=== PATIENT | female | born 1985 | race Caucasian/White ===

== ENCOUNTER 2018-04-01 17:19 | Inpatient (IN) | payer BC, OTHER ==
[~2018-04-01] VITALS: Ht 170.2 cm; Wt 72.6 kg
[~2018-04-01 17:19] MED LIST: ACETYLCYS IVPB ONE; D5W IVPB ONE; NAPR-723 PO
--- NOTE | 2018-04-01 18:04 | EKG ---
FACILITY: [facility] [place] PATIENT NAME: SAM SHEETS : [id number] MR: [id number] V: [id number] EXAM DATE: ORDERING PHYSICIAN: DIMITRIOS ROSENBERG TECHNOLOGIST: MALIK Test Reason : ER Blood Pressure : / mmHG Vent. Rate : 115 BPM Atrial Rate : 115 BPM P-R Int : 174 ms QRS Dur : 076 ms QT Int : 340 ms P-R-T Axes : 065 050 038 degrees QTc Int : 470 ms Sinus tachycardia Otherwise normal ECG No previous ECGs available Confirmed by Suresh Strauss ([id number]) on 04/01/2018 8:09:40 PM Referred By: Confirmed By:Suresh Lou
--- NOTE | 2018-04-01 18:05 | ER Report ---
History and Physical Time Seen By MD: 18:05 ([facility]) Time Seen By MD: 17:58 (TONI MACIEL MD) HPI/ROS CHIEF COMPLAINT: alcohol and Isopropyl alcohol ingestion HISTORY OF PRESENT ILLNESS: This is a 33 year old female. She is here because she has ingested some Isopropyl alcohol today. She had been on a heavy alcohol binge over the last couple of weeks. She works on a local [place] and the folks with here have been trying to remove alcohol from the home and anywhere she can access. She seemed to be okay this morning, but later in the afternoon, smelled like alcohol, and was found to have drank the isopropyl alcohol. Uncertain amount. They also found a bottle of wine that was almost empty. When I ask here why she drank the isopropyl alcohol, she is very evasive, and is also intoxicated. She says that she was sad, and also says that she wanted something different. She did admit that she knows that drinking this can be dangerous to her health. She denies being suicidal at this time, and denies depression. She denies any other self harm behavior and says that she has not taken any other medications, prescription or [id number]. She says that she wants to leave and I let her know that she would need to stay in the hospital. She denies any pain at this time. She will not communicate with me much otherwise. REVIEW OF SYSTEMS: Unable to obtain otherwise. (TONI MACIEL MD) Allergies: Uncoded Allergies: HYDROCODONE/APAP (Allergy, Mild, 06/20/08) Home Meds Reported Medications Naproxen (Naproxen) 500 Mg Tablet, 500 MG PO, 0 Refills 06/20/08 Reviewed Nurses Notes: Yes (TONI MACIEL MD) Constitutional Vital Sign - Last 24 Hours 04/01/18 04/01/18 04/01/18 04/01/18 17:19 17:25 17:32 17:49 Temp 98.3 Pulse ??? 130 119 Resp 19 9 B/P (MAP) 127/89 (102) 127/89 Pulse Ox 93 95 O2 Delivery Room Air 04/01/18 04/01/18 04/01/18 04/01/18 18:19 18:30 18:49 18:54 Pulse 114 110 112 Resp 17 11 15 B/P (MAP) 120/80 (93) 110/75 (87) Pulse Ox 94 95 94 04/01/18 04/01/18 04/01/18 04/01/18 19:09 19:24 19:32 19:37 Pulse 113 115 128 Resp 13 13 22 B/P (MAP) 118/77 (91) Pulse Ox 95 97 95 04/01/18 04/01/18 04/01/18 04/01/18 19:46 19:52 20:00 20:07 Pulse 111 117 Resp 11 16 B/P (MAP) 106/70 (82) 118/84 (95) Pulse Ox 93 96 04/01/18 04/01/18 04/01/18 04/01/18 20:22 20:30 20:37 20:52 Pulse 100 106 Resp 22 13 21 B/P (MAP) 109/79 (89) Pulse Ox 96 88 95 04/01/18 04/01/18 04/01/18 04/01/18 21:00 21:07 21:12 21:27 Pulse 110 110 Resp 10 25 24 B/P (MAP) 103/72 (82) Pulse Ox 82 98 04/01/18 21:30 B/P (MAP) 91/53 (66) Intake and Output 04/01/18 04/01/18 04/02/18 15:00 23:00 07:00 Intake Total 1000 ml Balance 1000 ml (RAHEEMTONI OMALLEY MD) Physical Exam General Appearance: The patient is alert, but slurring her words and has a difficult time focusing on questions, as well as being evasive and not wanting to take medications. No acute distress. Eyes: Pupils are equal, round. Reactive to light. No pallor, injection or icterus. Extraocular movements are intact. ENT: Mucous membranes are dry with some black material on teeth and tongue. Posterior oropharynx is normal. Normal tympanic membranes and canals. Neck: Supple and non tender. No lymphadenopathy. Respiratory: Lungs are clear to auscultation. There are no retractions or accessory muscle use. Cardiovascular: Regular rate and rhythm. No murmurs, gallops or rubs. Normal capillary refill. No edema. Gastrointestinal: Abdomen is soft and non tender. Nondistended. Normal active bowel sounds. No costovertebral angle tenderness with percussion. Neurological: Alert and oriented x2, can state her name, where she is, the day and date, but unable to say the names of people in the room or the president's name. Cranial nerves II through XII show no acute deficits on my exam other than the slurred speech. No focal neurologic deficits in the extremities other than cerebellar balance/coordination. Skin: Warm and dry. No rashes. Musculoskeletal: Extremities are nontender. No tenderness in palpation of the cervical, thoracic and lumbar spine. DIFFERENTIAL DIAGNOSIS: After history and physical exam, differential diagnosis was considered for altered mental status, ingestion of isopropyl alcohol, but no other reports of self-harm, evasive in the reasoning for drinking alcohol. ([facility],TONI Garcia MD) Medical Decision Making Data Points Result Diagram: 04/01/18 1732 04/01/18 1732 Laboratory Hematology Test 04/01/18 17:32 04/01/18 17:41 04/01/18 18:56 04/01/18 21:35 Red Blood Count 4.76 M/uL (4.17-5.56) Mean Corpuscular Volume 96.2 fL (80.0-96.0) Mean Corpuscular Hemoglobin 34.1 pg (26.0-33.0) Mean Corpuscular Hemoglobin Concent 35.4 g/dL (32.0-36.0) Red Cell Distribution Width 13.9 % (11.5-14.5) Mean Platelet Volume 8.5 fL (7.2-11.1) Neutrophils (%) (Auto) 63.1 % (39.4-72.5) Lymphocytes (%) (Auto) 30.8 % (17.6-49.6) Monocytes (%) (Auto) 5.7 % (4.1-12.4) Eosinophils (%) (Auto) 0.0 % (0.4-6.7) Basophils (%) (Auto) 0.4 % (0.3-1.4) Nucleated RBC Relative Count (auto) 0.1 /100WBC Neutrophils # (Auto) 8.2 K/uL (2.0-7.4) Lymphocytes # (Auto) 4.0 K/uL (1.3-3.6) Monocytes # (Auto) 0.7 K/uL (0.3-1.0) Eosinophils # (Auto) 0.0 K/uL (0.0-0.5) Basophils # (Auto) 0.1 K/uL (0.0-0.1) Nucleated RBC Absolute Count (auto) 0.02 K/uL Sodium Level 144 mmol/L (137-145) Potassium Level 3.6 mmol/L (3.5-5.0) Chloride Level 108 mmol/L (98-107) Carbon Dioxide Level 20 mmol/L (22-31) Blood Urea Nitrogen 11 mg/dl (7-18) Creatinine 0.70 mg/dl (0.52-1.04) Glomerular Filtration Rate Calc > 60.0 Random Glucose 101 mg/dl (75-110) Calcium Level 9.4 mg/dl (8.4-10.2) Magnesium Level 2.0 mg/dl (1.7-2.2) Total Bilirubin 0.2 mg/dl (0.2-1.3) Aspartate Amino Transf (AST/SGOT) 41 U/L (0-35) Alanine Aminotransferase (ALT/SGPT) 27 U/L (0-56) Alkaline Phosphatase 56 U/L (0-126) Total Protein 7.3 g/dl (6.3-8.2) Albumin 4.3 g/dl (3.5-5.0) Salicylates Level < 10 mg/L Salicylate Last Dose Date unknown Serum Alcohol 72 mg/dl Urine Color Colorless Urine Clarity Clear Urine pH 6.0 pH (4.8-9.5) Urine Specific [address] 1.003 Urine Protein Negative mg/dL (NEGATIVE) Urine Glucose (UA) Negative mg/dL (NEGATIVE) Urine Ketones Trace mg/dL (NEGATIVE) Urine Blood Negative (NEGATIVE) Urine Nitrite Negative (NEGATIVE) Urine Bilirubin Negative (NEGATIVE) Urine Urobilinogen Negative mg/dL (0.2-1.9) Urine Leukocyte Esterase Negative (NEGATIVE) Urine RBC <1 /HPF (0-2/HPF) Urine WBC <1 /HPF (0-5/HPF) Urine Squamous Epithelial Cells Many /LPF (</=FEW) Urine Bacteria Negative /HPF (NONE-FEW) Urine Mucus None /HPF (NONE-FEW) Urine HCG, Qualitative Negative (NEGATIVE) Urine Opiates Screen Negative Urine Barbiturates Screen Negative Ur Tricyclic Antidepressants Screen Negative Urine Phencyclidine Screen Negative Urine Amphetamines Screen Negative Urine Benzodiazepines Screen Negative Urine Cocaine Screen Negative Urine Cannabinoids Screen Negative Blood Gas Puncture Site Left radial Blood Gas Patient Temperature 98.4 DEGREES Arterial Blood pH 7.38 (7.35-7.45) Arterial Blood Partial Pressure CO2 31 mmHg (32-37) Arterial Blood Partial Pressure O2 55 mmHg (60-80) Arterial Blood HCO3 18 mmol/L (20-26) Arterial Blood Oxygen Saturation 89 % (92-100) Arterial Blood Base Excess -7.0 mmol/L Marco Test Acceptable Oxygen Liters/Minute Room air Chemistry Test 04/01/18 17:32 04/01/18 17:41 04/01/18 18:56 04/01/18 21:35 White Blood Count 13.0 k/uL (4.5-11.0) Red Blood Count 4.76 M/uL (4.17-5.56) Hemoglobin 16.2 g/dL (12.0-16.0) Hematocrit 45.8 % (34.0-47.0) Mean Corpuscular Volume 96.2 fL (80.0-96.0) Mean Corpuscular Hemoglobin 34.1 pg (26.0-33.0) Mean Corpuscular Hemoglobin Concent 35.4 g/dL (32.0-36.0) Red Cell Distribution Width 13.9 % (11.5-14.5) Platelet Count 247 K/uL (150-450) Mean Platelet Volume 8.5 fL (7.2-11.1) Neutrophils (%) (Auto) 63.1 % (39.4-72.5) Lymphocytes (%) (Auto) 30.8 % (17.6-49.6) Monocytes (%) (Auto) 5.7 % (4.1-12.4) Eosinophils (%) (Auto) 0.0 % (0.4-6.7) Basophils (%) (Auto) 0.4 % (0.3-1.4) Nucleated RBC Relative Count (auto) 0.1 /100WBC Neutrophils # (Auto) 8.2 K/uL (2.0-7.4) Lymphocytes # (Auto) 4.0 K/uL (1.3-3.6) Monocytes # (Auto) 0.7 K/uL (0.3-1.0) Eosinophils # (Auto) 0.0 K/uL (0.0-0.5) Basophils # (Auto) 0.1 K/uL (0.0-0.1) Nucleated RBC Absolute Count (auto) 0.02 K/uL Glomerular Filtration Rate Calc > 60.0 Calcium Level 9.4 mg/dl (8.4-10.2) Magnesium Level 2.0 mg/dl (1.7-2.2) Total Bilirubin 0.2 mg/dl (0.2-1.3) Aspartate Amino Transf (AST/SGOT) 41 U/L (0-35) Alanine Aminotransferase (ALT/SGPT) 27 U/L (0-56) Alkaline Phosphatase 56 U/L (0-126) Total Protein 7.3 g/dl (6.3-8.2) Albumin 4.3 g/dl (3.5-5.0) Salicylates Level < 10 mg/L Salicylate Last Dose Date unknown Serum Alcohol 72 mg/dl Urine Color Colorless Urine Clarity Clear Urine pH 6.0 pH (4.8-9.5) Urine Specific [address] 1.003 Urine Protein Negative mg/dL (NEGATIVE) Urine Glucose (UA) Negative mg/dL (NEGATIVE) Urine Ketones Trace mg/dL (NEGATIVE) Urine Blood Negative (NEGATIVE) Urine Nitrite Negative (NEGATIVE) Urine Bilirubin Negative (NEGATIVE) Urine Urobilinogen Negative mg/dL (0.2-1.9) Urine Leukocyte Esterase Negative (NEGATIVE) Urine RBC <1 /HPF (0-2/HPF) Urine WBC <1 /HPF (0-5/HPF) Urine Squamous Epithelial Cells Many /LPF (</=FEW) Urine Bacteria Negative /HPF (NONE-FEW) Urine Mucus None /HPF (NONE-FEW) Urine HCG, Qualitative Negative (NEGATIVE) Urine Opiates Screen Negative Urine Barbiturates Screen Negative Ur Tricyclic Antidepressants Screen Negative Urine Phencyclidine Screen Negative Urine Amphetamines Screen Negative Urine Benzodiazepines Screen Negative Urine Cocaine Screen Negative Urine Cannabinoids Screen Negative Blood Gas Puncture Site Left radial Blood Gas Patient Temperature 98.4 DEGREES Arterial Blood pH 7.38 (7.35-7.45) Arterial Blood Partial Pressure CO2 31 mmHg (32-37) Arterial Blood Partial Pressure O2 55 mmHg (60-80) Arterial Blood HCO3 18 mmol/L (20-26) Arterial Blood Oxygen Saturation 89 % (92-100) Arterial Blood Base Excess -7.0 mmol/L Marco Test Acceptable Oxygen Liters/Minute Room air Toxicology Test 04/01/18 17:32 04/01/18 17:41 04/01/18 21:35 Salicylates Level < 10 mg/L Salicylate Last Dose Date unknown Serum Alcohol 72 mg/dl Urine Opiates Screen Negative Urine Barbiturates Screen Negative Ur Tricyclic Antidepressants Screen Negative Urine Phencyclidine Screen Negative Urine Amphetamines Screen Negative Urine Benzodiazepines Screen Negative Urine Cocaine Screen Negative Urine Cannabinoids Screen Negative Urinalysis Test 04/01/18 17:41 Urine Color Colorless Urine Clarity Clear Urine pH 6.0 pH (4.8-9.5) Urine Specific [address] 1.003 Urine Protein Negative mg/dL (NEGATIVE) Urine Glucose (UA) Negative mg/dL (NEGATIVE) Urine Ketones Trace mg/dL (NEGATIVE) Urine Blood Negative (NEGATIVE) Urine Nitrite Negative (NEGATIVE) Urine Bilirubin Negative (NEGATIVE) Urine Urobilinogen Negative mg/dL (0.2-1.9) Urine Leukocyte Esterase Negative (NEGATIVE) Urine RBC <1 /HPF (0-2/HPF) Urine WBC <1 /HPF (0-5/HPF) Urine Squamous Epithelial Cells Many /LPF (</=FEW) Urine Bacteria Negative /HPF (NONE-FEW) Urine Mucus None /HPF (NONE-FEW) Urine HCG, Qualitative Negative (NEGATIVE) (TONI MACIEL MD) EKG/Imaging EKG Interpretation 12 lead EKG: Rhythm: Sinus tachycardia, rate 115 [place]: normal QRS: normal ST segments: Nonspecific no ST elevation or depression noted (TONI MACIEL MD) ED Course/Re-evaluation Clinical Indication for ER IV: Hydration, IV Access ED Course Poison control was contacted. IV fluids were started and labs obtained. The patient had an alcohol level of 72. Elevated anion gap, mild acidosis. No drugs , but tylenol level is 34. Questioned the patient again, and she says that she thinks she took 4 tylenol last night. Unsure if she took any today. She was getting shaky and so given alcohol intake reported to be high, gave Ativan 2mg IV to cover withdrawal symptoms. Started the Emergency [facility] process, and discussed the case with both Dr. Mustafa, behavioral health, and with Dr. Buitrago, hospitalist. We will admit to the ICU tonight. Poison control recommended the 21 hour Acetylcysteine treatment given the Tylenol level without definitive timing of an ingestion. After medical clearance, can be transferred to the behavioral health unit once cleared. Patient requesting a cigarette. Provided a 21mg/hr nicotine patch. Decision to Disposition Date: Apr 01, 2018 Decision to Disposition Time: 19:46 (TONI MACIEL MD) Depart Departure Latest Vital Signs Vital Signs Date Time Temp Pulse Resp B/P (MAP) Pulse Ox O2 Delivery O2 Flow Rate FiO2 04/01/18 21:30 91/53 (66) 04/01/18 21:27 110 24 98 04/01/18 17:32 98.3 Room Air (TONI MACIEL MD) Impression: Primary Impression: Isopropyl alcohol poisoning Additional Impressions: Tylenol ingestion Alcohol use disorder, severe, dependence Condition: Condition Unchanged Disposition: Admitted from ER Problem Qualifiers Additional Impressions: Tylenol ingestion Encounter type: initial encounter Injury intent: undetermined intent Qualified Codes: T39.1X4A - Poisoning by 4-aminophenol derivatives, undetermined, initial encounter [facility] Apr 01, 2018 18:05 TONI MACIEL MD Apr 01, 2018 18:12
[2018-04-01 18:12] LABS: PLATELET COUNT, AUTOMATED 247 K/uL (150-450)
[2018-04-01] MEDS ORDERED: NS(*) 0.9% 1000 ML BAG 1,000 ML IV ONE ×2 (18:35→19:40)
[2018-04-01] MEDS ORDERED: LORazepam 2 MG/ML VIAL IVP ONE (18:35)
[2018-04-01] MEDS ORDERED: NICOTINE 21 MG/24 HR PATCH TD ONE (19:40)
[2018-04-01] MEDS ORDERED: ACETYLCYS IV ONE ×2 (21:30→22:30)
[2018-04-01] MEDS ORDERED: D5W IV ONE ×2 (21:30→22:30)
[2018-04-01 21:56] VITALS: BP 107/68
[2018-04-01 22:00] VITALS: BP 102/69
[2018-04-01] MEDS ORDERED: LORazepam 2 MG/ML VIAL IVP PRN (22:25)
[2018-04-01] MEDS ORDERED: LORazepam 2 MG/ML VIAL IM PRN (22:25)
[2018-04-01 22:30] VITALS: BP 95/65
[2018-04-01] MEDS ORDERED: NS(*) 0.9% 1000 ML BAG 1,000 ML IV PRN (22:32)
[2018-04-01] MEDS ORDERED: FLUSH 10 ML SYR IVP PRN (22:35)
[2018-04-01] MEDS ORDERED: INFLUENZA VIRUS VAC 0.5 ML SYR IM ONLY ONE (22:35)
[2018-04-01] MEDS ORDERED: ONDANSETRON 4 MG/2 ML VIAL IVP PRN (22:35)
[2018-04-01 22:56] LABS: INR 0.94
[2018-04-01 23:00] VITALS: BP 96/62
--- NOTE | 2018-04-01 23:12 | History & Physical ---
History of Present Illness Chief Complaint Isopropyl alcohol ingestion, EtOH withdrawal History of Present Illness 33F presented to ER after parents noted she had ingested isopropyl alcohol while beginning to withdraw from EtOH. Parents report long history of EtOH abuse and had been sober for one point 1.5 years. Had been increasing EtOH consumption recently and "binging recently". They had taken her into their home to try and limit exposure and opportunity for consumption. Reportedly was noted to have strong odor and water bottle was found to smell strongly of isopropyl alcohol and rubbing alcohol bottle was significantly lower. Found empty wine bottle as well. Work up revealed elevated Tylenol level and pt reported taking 4 tablets yesterday for headache. Unclear if pt intended self harm, level appears to be elevated if timeline is correct. Poison control consulted, recommend beginning n-acetylcysteine for possible acetaminophen toxicity. History Problems: (1) Alcohol use disorder, severe, dependence Status: Chronic Home Meds Reported Medications Naproxen (Naproxen) 500 Mg Tablet, 500 MG PO, 0 Refills 06/20/08 Allergies: Uncoded Allergies: HYDROCODONE/APAP (Allergy, Mild, 06/20/08) Patient History: Diabetes mellitus (DM) FATHER FH: HTN (hypertension) FATHER FH: breast cancer aunt Grandmother Hx Smoking: Yes Hx Alcohol Use: Yes Hx Substance Use Disorder: No Review of Systems All Systems Reviewed/Normal: Yes, Except as Noted Neurological: Confusion, Slurred Speech Psychiatric: Anxiety Exam Vital Signs Vital Signs Date Time Temp Pulse Resp B/P (MAP) Pulse Ox O2 Delivery O2 Flow Rate FiO2 04/01/18 21:56 98.2 106 24 107/68 (81) 95 Room Air General Appearance: Afebrile Neuro: No Gross deficits ENT: Normal Neck: No Masses Cardiovascular: Normal Rhythm & Peripheral Pulses (tachycardic) Respiratory: No Respiratory Distress, Clear to Auscultation Chest: No Masses GI: Abd Soft and Non-Tender Lymph: Cervical Nodes Benign Musculoskeletal: No Weakness/Pain Extremities: Soft and Non Tender, Warm, Pulses, Perfused Integumentary: Skin Intact without Lesion / Mass Psych: Other (lethargic) Medical Decision Making Data Points Result Diagram: 04/01/18 1732 04/01/18 1732 EKG / Imaging Monitor Interpretation: Sinus Tachycardia Assessment and Plan Problems: (1) Alcohol use disorder, severe, dependence Status: Chronic Assessment & Plan: Begin CIWA, monitor in ICU. Thiamine and folate replacement , will transfer to [facility] once medically stable. No Hx of seizure or DT on EtOH withdrawal. (2) Tylenol ingestion Status: Acute Assessment & Plan: Unknown time of ingestion, level 24 and if timeline is correct could represent overdose. Repeat 4 hours later 12. Will begin n- acetylcysteine treatment based on uncertain timeline. Acetaminophen level pending at 8 hours. Mild ALT elevation, will get PT/INR baseline. Recheck liver enzymes q12h for 24 hours. (3) Isopropyl alcohol poisoning Status: Acute Assessment & Plan: Bicarb level slightly low, no acidosis, anion gap 16. Findings are consistent with ingestion of isopropyl alcohol, no indication of co -ingestion of methanol or propylene glycol. No further treatment necessary beyond CIWA and close monitoring. Will need [facility] evaluation to evaluate for self harm. Protecting airway GCS 11 Venous Thromboembolism Antithrombotics Is Pt On Any Antithrombotics?: No Exam Sepsis Risk: No Definite Risk Problem Qualifiers (1) Tylenol ingestion: Injury intent: undetermined intent TRE BAGLEY DO Apr 01, 2018 23:12
[2018-04-01 23:30] VITALS: BP 95/62
[2018-04-02] VITALS (25 sets, daily range): BP systolic 86–116; BP diastolic 49–77; Ht 170.2 cm; Wt 72.6 kg
[2018-04-02] MEDS ORDERED: PROMETHAZINE 25 MG/ML 1 ML AMP IVP PRN (08:15)
[2018-04-02] MEDS ORDERED: THIAMINE HCL 100 MG TAB PO SCH (09:00)
[2018-04-02] MEDS ORDERED: FOLIC ACID 1 MG TAB PO SCH (09:00)
--- NOTE | 2018-04-02 10:39 | Hospitalist Progress Note ---
Subjective Progress Notes Subjective She reports mild "shakiness". No appetite. Physical Exam Vital Signs Date Time Temp Pulse Resp B/P (MAP) Pulse Ox O2 Delivery O2 Flow Rate FiO2 04/02/18 09:00 107 04/02/18 07:15 96 Room Air 04/02/18 07:00 98.2 23 102/65 (77) Intake and Output 04/03/18 07:00 # Voids 2 General Appearance: Alert, Awake, Other (minimal tremulousness) Neuro: No Gross deficits Cardiovascular: Regular Rate and Rhythm, No Edema Respiratory: Clear to Auscultation GI: Soft and Non-Tender Extremities: Warm, Perfused Psych: Alert & Oriented X3 Result Diagram: 04/01/18 1732 04/02/18 0521 Item Value Date Time Albumin 2.8 g/dl L 04/02/18 0521 Total Protein 5.1 g/dl L 04/02/18 0521 Alkaline Phosphatase 27 U/L 04/02/18 0521 Alanine Aminotransferase (ALT/SGPT) 26 U/L 04/02/18 0521 Aspartate Amino Transf (AST/SGOT) 21 U/L 04/02/18 0521 Direct Bilirubin 0.2 mg/dl 04/02/18 0521 Total Bilirubin 0.3 mg/dl 04/02/18 0521 Magnesium Level 1.8 mg/dl 04/02/18 0826 Calcium Level 7.5 mg/dl L 04/02/18 0521 Acetaminophen Level < 10 ug/ml 04/02/18 0146 Acetaminophen Level 12 ug/ml 04/01/18 2135 Acetaminophen Level 34 ug/ml 04/01/18 1732 Monitor Interpretation: Sinus Tachycardia Assessment and Plan Problems: (1) Alcohol use disorder, severe, dependence Status: Chronic Assessment & Plan: Continue CIWA. Thiamine and folate replacement. Will transfer to [facility] once medically stable. No history of seizure or DT with previous detox/withdrawal. (2) Tylenol ingestion Status: Acute Assessment & Plan: Initially, unknown time of ingestion. We started n- acetylcysteine treatment based on uncertain timeline. Mild ALT elevation has normalized. PT/INR normal. She was able to tell us that her ingestion of acetaminophen was "about lunchtime yesterday". Plotting on the [place] nomogram places her at low risk of toxicity. Will complete her Mucomyst later today. (3) Isopropyl alcohol poisoning Status: Acute Assessment & Plan: Bicarb level slightly low, no acidosis, anion gap initially 16 and is now 7. No indication of co-ingestion of methanol or propylene glycol. No further treatment necessary beyond CIWA and close monitoring. Will need S evaluation to evaluate for self harm. She is currently detained. Exam Sepsis Risk: No Definite Risk Problem Qualifiers (1) Tylenol ingestion: Injury intent: undetermined intent DONTE MARLEY MD Apr 02, 2018 10:39
[2018-04-02] MEDS ORDERED: NICOTINE INH SYSTEM 10 MG/INH INH PRN (11:25)
[2018-04-02] MEDS ORDERED: LORazepam 1 MG TAB PO PRN (11:25)
--- NOTE | 2018-04-02 14:50 | Hospitalist Depart ---
Discharge Summary Reason for Hosp/Final Diag: (1) Alcohol use disorder, severe, dependence Status: Chronic Hospital Course & Plan: She was placed on CIWA protocol and dosed with lorazepam as needed. Thiamine/folate replacement was also given. No history of seizure or DT with previous detox/withdrawal. She was evaluated by psychiatry and will be transferred to [facility] unit for ongoing management. (2) Tylenol ingestion Status: Acute Hospital Course & Plan: Initially, unknown time of ingestion. We started n- acetylcysteine treatment based on uncertain timeline. Mild ALT elevation at time of admission was normalized by the following morning. Her PT/INR are normal. She was able to tell us that her ingestion of acetaminophen was "about lunchtime yesterday". Plotting on the [place]ack nomogram places her at low risk of toxicity. We completed her Mucomyst despite low risk of toxicity. (3) Isopropyl alcohol poisoning Status: Acute Hospital Course & Plan: Her bicarbonate level was slightly low and anion gap initially 16. The AG did decrease to 7. No indication of co-ingestion of methanol or propylene glycol. No further treatment will be necessary beyond CIWA and close monitoring. She was evaluated by [facility] staff regarding potential for self harm. She was detained in the ER. She will be transferred to [facility] unit for ongoing evaluation/treatment. Departure Weight (Pounds): 160 Weight (Ounces): 4.0 Result Diagram: 04/01/18 1732 04/02/18 0521 Item Value Date Time Albumin 2.8 g/dl L 04/02/18 0521 Total Protein 5.1 g/dl L 04/02/18 0521 Alkaline Phosphatase 27 U/L 04/02/18 0521 Alanine Aminotransferase (ALT/SGPT) 26 U/L 04/02/18 0521 Aspartate Amino Transf (AST/SGOT) 21 U/L 04/02/18 0521 Direct Bilirubin 0.2 mg/dl 04/02/18 0521 Total Bilirubin 0.3 mg/dl 04/02/18 0521 Magnesium Level 1.8 mg/dl 04/02/18 0826 Total Bilirubin 0.2 mg/dl 04/02/18 0521 Aspartate Amino Transf (AST/SGOT) 20 U/L 04/02/18 0521 Alanine Aminotransferase (ALT/SGPT) 26 U/L 04/02/18 0521 Alkaline Phosphatase 26 U/L 04/02/18 0521 Total Protein 5.1 g/dl L 04/02/18 0521 Albumin 2.8 g/dl L 04/02/18 0521 Thyroid Stimulating Hormone (TSH) 0.22 uIU/ml L 04/01/18 1732 Albumin 4.3 g/dl 04/01/18 1732 Total Protein 7.3 g/dl 04/01/18 1732 Alkaline Phosphatase 56 U/L 04/01/18 1732 Alanine Aminotransferase (ALT/SGPT) 27 U/L 04/01/18 1732 Aspartate Amino Transf (AST/SGOT) 41 U/L H 04/01/18 1732 Total Bilirubin 0.2 mg/dl 04/01/18 1732 Magnesium Level 2.0 mg/dl 04/01/18 1732 Acetaminophen Level < 10 ug/ml 04/02/18 0146 Acetaminophen Level 12 ug/ml 04/01/18 2135 Urine Opiates Screen Negative 04/01/18 1741 Urine Barbiturates Screen Negative 04/01/18 1741 Ur Tricyclic Antidepressants Screen Negative 04/01/18 1741 Urine Phencyclidine Screen Negative 04/01/18 1741 Urine Amphetamines Screen Negative 04/01/18 1741 Urine Benzodiazepines Screen Negative 04/01/18 1741 Urine Cocaine Screen Negative 04/01/18 1741 Urine Cannabinoids Screen Negative 04/01/18 1741 Serum Alcohol 72 mg/dl 04/01/18 1732 Acetaminophen Level 34 ug/ml 04/01/18 1732 Salicylates Level < 10 mg/L 04/01/18 1732 Salicylate Last Dose Date unknown 04/01/18 1732 Blood Gas Puncture Site Left radial 04/01/18 1856 Blood Gas Patient Temperature 98.4 DEGREES 04/01/18 1856 Arterial Blood pH 7.38 04/01/18 1856 Arterial Blood Partial Pressure CO2 31 mmHg L 04/01/18 1856 Arterial Blood Partial Pressure O2 55 mmHg L 04/01/18 185 Arterial Blood HCO3 18 mmol/L L 04/01/18 185 Arterial Blood Oxygen Saturation 89 % L 04/01/18 185 Arterial Blood Base Excess -7.0 mmol/L 04/01/18 1856 Marco Test Acceptable 04/01/18 1856 Oxygen Liters/Minute Room air 04/01/18 1856 Urine HCG, Qualitative Negative 04/01/18 1741 Urine Mucus None /HPF 04/01/18 1741 Urine Bacteria Negative /HPF 04/01/18 1741 Urine Squamous Epithelial Cells Many /LPF H 04/01/18 1741 Urine WBC <1 /HPF 04/01/18 1741 Urine RBC <1 /HPF 04/01/18 1741 Urine Leukocyte Esterase Negative 04/01/18 1741 Urine Urobilinogen Negative mg/dL 04/01/18 1741 Urine Bilirubin Negative 04/01/18 1741 Urine Nitrite Negative 04/01/18 1741 Urine Blood Negative 04/01/18 1741 Urine Ketones Trace mg/dL 04/01/18 1741 Urine Glucose (UA) Negative mg/dL 04/01/18 1741 Urine Protein Negative mg/dL 04/01/18 1741 Urine Specific Manly 1.003 04/01/18 1741 Urine pH 6.0 pH 04/01/18 1741 Urine Clarity Clear 04/01/18 1741 Urine Color Colorless 04/01/18 1741 Prothromb Time International Ratio 0.94 04/01/18 1732 Prothrombin Time 12.5 seconds 04/01/18 1732 EKG PATIENT NAME: SAM SHEETS : [id number] MR: [id number] V: [id number] EXAM DATE: ORDERING PHYSICIAN: DIMITRIOS ROSENBERG TECHNOLOGIST: MALIK Test Reason : ER Blood Pressure : / mmHG Vent. Rate : 115 BPM Atrial Rate : 115 BPM P-R Int : 174 ms QRS Dur : 076 ms QT Int : 340 ms P-R-T Axes : 065 050 038 degrees QTc Int : 470 ms Sinus tachycardia Otherwise normal ECG No previous ECGs available Confirmed by Suresh Strauss ([id number]) on 04/01/2018 8:09:40 PM Referred By: Confirmed By:Suresh Lou Condition: Improved Discharge: [facility] Follow-Up Labs: Other (She will need recheck of her slightly low TSH in 1-2 weeks. If persistently low, she will need further thyroid evaluation.) Discharge Instructions Home Meds Reported Medications Naproxen (Naproxen) 500 Mg Tablet, 500 MG PO, 0 Refills 06/20/08 Diet: Regular Activity: As Tolerated Special Instructions: She will be transferred to [facility] unit. Venous Thromboembolism Antithrombotics Is Pt On Any Antithrombotics?: No Problem Qualifiers (1) Tylenol ingestion: Injury intent: undetermined intent DONTE MARLEY MD Apr 02, 2018 14:50
--- NOTE | 2018-04-02 16:07 | BHS - Psychiatric Evaluation ---
ER - Title 25 MHE Evaluation Title 25 Evaluation Patient Detained By: Physician (PHILIP Toribio and Dr. Laurent) Referral Source: Professional: Leonel Nichols [facility] Date Patient Detained: May 02, 2018 Time Patient Detained: 19:36 Date Senior Living Expires: Apr 04, 2018 Time Senior Living Expires: 19:36 Legal Status: Police Hold: No Legal Status: Residence: [facility] Resident, State Resident Assessment Data Provided By: Patient, Family Member(s), Other Source ( Electronic Medical Record and other [facility] professionals ) HPI/ROS: From ER DIE DRAWING CHECKER, Leonel Nichols, "This is a 33 year old female. She is here because she has ingested some Isopropyl alcohol today. She had been on a heavy alcohol binge over the last couple of weeks. She works on a local [employer] and the folks with here have been trying to remove alcohol from the home and anywhere she can access. She seemed to be okay this morning, but later in the afternoon, smelled like alcohol, and was found to have drank the isopropyl alcohol. Uncertain amount. They also found a bottle of wine that was almost empty. When I ask here why she drank the isopropyl alcohol, she is very evasive, and is also intoxicated. She says that she was sad, and also says that she wanted something different. She did admit that she knows that drinking this can be dangerous to her health. She denies being suicidal at this time, and denies depression. She denies any other self harm behavior and says that she has not taken any other medications, prescription or [id number]. She says that she wants to leave and I let her know that she would need to stay in the hospital. She denies any pain at this time. She will not communicate with me much otherwise." Admit due to SI or Attempt: Yes Suicide Plan: No Plan (Denies but says she was feeling unable to find any solitions for her problems and felt hopeless.) Alcohol or Drugs Involved: Yes (Patient consumed a high amount of alcohol, and is going through withdrawal here at the hospital that needs to be medically managed for her safety. This symptomatic withdrawal suggests heavy alcohol use/ tolerance, and greater fragility of the patient.) Is Patient Info Reliable: Yes Is Collateral Info Reliable: Yes (Visited with patient mother as well) Mental Status Exam General Appearance: Casual, Well Groomed, Good Eye Contact, Cooperative Speech: Clear Affect: Full and Appropriate, Sad Thought Process: Organized Thought Content: Suicidal Ideation (Says she no longer feels suicidal. The concern is only 24 hours ago she was engaged in dangerous, potentially life threatening behaviors, and is unable to be cared for at any level lower than the Intensive Care Unit at this time.) Cognition: Alert & Oriented-Person, Alert & Oriented-Place Memory: Immediate, Recent, Remote Insight Judgment: Poor Hallucinations: Denies Delusions: Denies Current Risk & History Current Dangerous Risk Assessm: Current Suicide Ideation (Says she no longer feels suicidal. The concern is only 24 hours ago she was engaged in dangerous, potentially life threatening behaviors, and is unable to be cared for at any level lower than the Intensive Care Unit at this time.) Past Dangerous Risk Assessm: Suicide Ideation-last 6mo (At this time, reports no previous attempts. More could be revealed as she becomes more stable and is able to move from care in the ICU.) Previous Suicide Attempt: No Previous Attempt (None known at this time.) Previous Psychiatric Illness: Yes Previous Psychiatric Treatment: Yes (Patient said she was in counseling as recently as September for some overwhelming relationship problems.) Risk Assessment & Disposition Evaluated Risk Assessment: Patient risk is rated as high. Although patient said she was in counseling as recently as September for some overwhelming relationship problems, she stopped around that time due to what she described as a high cost of counseling. She shared that her relationship difficulties worsened since that time, and she has not been able to come up with ways to feel less upset about her situation. Her hopelessness and suicidal behaviors that have led to the level of the Intensive Care Unit are concerning. Patient needs a high level of structure and care to stabilize. She is currently unstable and not yet able to be transferred from ICU to [facility]. Patient's mother says she feels a group home is appropriate for her daughter, and seems genuinely fearful about her daughter's suicidal behaviors and resultant fragile, medically unstable condition. Impression: Primary Impression: Isopropyl alcohol poisoning Additional Impressions: Alcohol use disorder, severe, dependence Tylenol ingestion Meets Mental Illness Req.: Yes Meets Dangerousness Req.: Yes Emergency Senior Living to be: Upheld Decision Comment: Patient risk is rated as high. Although patient said she was in counseling as recently as September for some overwhelming relationship problems, she stopped around that time due to what she described as a high cost of counseling. She shared that her relationship difficulties worsened since that time, and she has not been able to come up with ways to feel less upset about her situation. Her hopelessness and suicidal behaviors that have led to the level of the Intensive Care Unit are concerning. Patient needs a high level of structure and care to stabilize. She is currently unstable and not yet able to be transferred from ICU to [facility]. Patient's mother says she feels a group home is appropriate for her daughter, and seems genuinely fearful about her daughter's suicidal behaviors and resultant fragile, medically unstable condition. Date of Decision: Apr 02, 2018 Time of Decision: 16:22 Patient is Medically Stable at: No Disposition: ICU Problem Qualifiers Additional Impressions: Tylenol ingestion Injury intent: undetermined intent VADIM PRICE LPC Apr 02, 2018 16:07
== END 2018-04-02 17:20 | DRG 918 ==
LOC: ER 18:33 → ICU 21:36
PROVIDERS: ADMIT Internal Medicine; ATTEND Internal Medicine
DX: T51.2X2A Toxic effect of 2-Propanol, intentional self-harm, initial encounter (principal); F10.230 Alcohol dependence with withdrawal, uncomplicated; T39.1X2A Poisoning by 4-Aminophenol derivatives, intentional self-harm, initial encounter; R40.2423 Glasgow coma scale score 9-12, at hospital admission; Y92.009 Unspecified place in unspecified non-institutional (private) residence as the place of occurrence of the external cause
CPT/HCPCS: 36415; 36600; 80305; 80320; 80329; 81001; 81025; 82040; 82247; 82248; 82310; 82374; 82435; 82565; 82803; 82947; 83735; 84075; 84132; 84155; 84295; 84443; 84450; 84460; 84520; 85025; 85610; 93005; 96361; 96374; 99285; J0132; J2060; J7030; J7070

== ENCOUNTER 2018-04-02 17:20 | Inpatient (IN) | payer BC, OTHER ==
[~2018-04-02] VITALS: Ht 167.6 cm; Wt 63.5 kg
[2018-04-02 10:02] VITALS: Ht 167.6 cm; Wt 63.5 kg
[~2018-04-02 17:20] MED LIST changes: -ACETYLCYS IVPB ONE; -D5W IVPB ONE
[2018-04-02 17:22] VITALS: BP 113/83
[2018-04-02] MEDS ORDERED: MAG HYD/AL HYD/SIMETH 30ML UDC PO PRN (18:00)
[2018-04-02] MEDS ORDERED: NICOTINE CARTRIDGE 1 EA PO PRN (18:00)
[2018-04-02] MEDS: LORazepam 1 MG TAB PO PRN ×4 (18:41→21:39)
[2018-04-02] MEDS: NICOTINE INH SYSTEM 10 MG/INH INH PRN ×2 (19:42→21:39)
[2018-04-03 02:45] VITALS: BP 110/72
[2018-04-03] MEDS: LORazepam 1 MG TAB PO PRN ×3 (02:51→16:27)
[2018-04-03 08:05] VITALS: BP 108/74
[2018-04-03] MEDS: MULTIVITAMINS TAB PO SCH (08:35)
[2018-04-03] MEDS: FOLIC ACID 1 MG TAB PO SCH (08:35)
[2018-04-03] MEDS: THIAMINE HCL 100 MG TAB PO SCH (08:35)
[2018-04-03] MEDS: ESCITALOPRAM OXALATE 10 MG TAB PO SCH (10:05)
[2018-04-03] MEDS: NICOTINE INH SYSTEM 10 MG/INH INH PRN ×2 (10:09→12:09)
[2018-04-03] MEDS: NICOTINE POLACRILEX 2 MG GUM PO PRN ×3 (14:09→18:09)
[2018-04-03 14:48] VITALS: BP 120/80
--- NOTE | 2018-04-03 15:29 | HISTORY AND PHYSICAL ---
DATE OF ADMISSION: April 02, 2018 Patient was seen at approximately 0900 hours on the morning of 03 April 2018 for note concerning this dictation. PRESENTING PROBLEM/CHIEF COMPLAINT This is a cooperative, 33-year-old female who was initially sent to the ICU for a one-day stay after patient was found to have ingested Tylenol in addition to drinking ethanol as well as drinking isopropyl alcohol. Patient was intoxicated at time of arrival to the Emergency Room. Emergency detainment was , again, initiated due to patient's inability to clarify whether she was intending to harm herself or not. Patient was, again, sent to ICU. As medically cleared, the patient brought to the Behavioral Health Unit without incident. Patient very calm, polite, cooperative with initial interview. Patient adamantly denying suicidality. She reported, "I just wanted to get high ," and she freely admits to being an ongoing significant alcoholic. Patient appears to be a very accurate historian overall. She admits to some financial and family relationship problems mostly related to her alcohol. Patient reports overall, however, outside of this she has had some symptoms of anxiety where she sees Lesa Stahl for, and this has overall been treated well. It is believed that patient has been on Lexapro, possibly Effexor, and she says these medications are helpful. Patient does report taking them as prescribed. Patient denies any other psychiatric concerns. Patient currently being treated with lorazepam for alcohol withdrawal management. MENTAL HEALTH HISTORY Patient has never been on an inpatient psychiatric eisenberg before. She has gone to in the past. She has had extended periods of sobriety. States she had last seen Lesa Stahl in September, but continues to follow with her. Patient denies a history of suicide attempt. FAMILY PSYCHIATRIC HISTORY Significant for a great uncle on the father's side who from complications of alcohol use disorder. Patient denies any other family psychiatric history. No suicides in the family. PAST MEDICAL HISTORY * Patient reports overall good health and not having any other medical concerns. CURRENT MEDICATIONS * She is on control. ALLERGIES She has an allergy to HYDROCODONE. SOCIAL HISTORY Patient was born in [place], raised in [place]. Parents at time of her , and they are together still. Patient has one younger sibling. She is a high school graduate, has a bachelor of arts in criminal justice. She has never , has no children. She is not engaged in a romantic relationship currently, does consider herself heterosexual. She works currently at [employer] , believed to be in the [employer] business. She lives in a house here in town. LEGAL HISTORY Patient reports having two DUIs. SUBSTANCE ABUSE HISTORY Patient has abused alcohol heavily for the last 10 years with some extended periods of sobriety in between. Patient smokes cigarettes. Denies the use of any other substance. PHYSICAL EXAMINATION Please see emergency room note. Notable for: GENERAL: A 33-year-old female brought into the Emergency Room accompanied by parents. Her parents were noted to have been trying to keep alcohol away from her, and she has been bingeing on alcohol. Parents also indicated she drank isopropyl alcohol before coming in. Patient in need of overnight observation on ICU at time of initial arrival. VITAL SIGNS: Vital signs at time of admission, temperature 98.3, pulse 130, respiratory rate 19, blood pressure 127/89, pulse oximetry 93% on room air. LABORATORY DATA CBC notable for white blood cells elevated at 13.0, hemoglobin 16.2 and elevated , MCV 96.2 and elevated, MCH 34.1 and elevated. Chemistry panel notable for sodium 136 and low, calcium low at 7.5. TSH 0.22. Urinalysis unremarkable. screen negative. Toxicology screen negative. Acetaminophen falling after an initial high recorded of 34. Serum alcohol 72 at time of admission. MENTAL STATUS EXAMINATION GENERAL APPEARANCE, BEHAVIOR, AND ATTITUDE: This is a fairly well-groomed, 33- year-old female, making good eye contact. No periods of tearfulness. No bizarre mannerisms or tics. Patient interacting well with this provider and very cooperative with treatment. SPEECH: Within normal limits. Regular rate, rhythm, volume, and tone. MOOD: Described as frustrated at times with alcohol use, patient indicating a desire to stop. AFFECT: Minimally constricted and mood congruent. THOUGHT PROCESSES: Goal directed. Logical. No loose associations or flight of ideas. THOUGHT CONTENT: Free of auditory or visual hallucinations, ideas of reference , thought broadcasting, delusions, obsessions, compulsions. Patient adamantly denying suicidal or homicidal ideations including at time of admission. SENSORIUM: Clear. COGNITION: Alert and oriented to person, place, time, situation. MEMORY: Immediate, recent, and remote estimated intact. INTELLIGENCE: Average based on interview. INSIGHT AND JUDGMENT: Limited at times due to degree of alcohol use disorder. ASSESSMENT This is a cooperative, 33-year-old female currently under an emergency detainment after drinking isopropyl alcohol and taking Tylenol in combination with ethanol. Patient seems to be an accurate, reliable historian at this time. Will continue to treat alcohol withdrawal to completion. Patient very cooperative with treatment, wants parents involved with treatment team meeting, and will continue to search for ways to help patient abstain once she is discharged from the hospital. DIAGNOSES: 1. Alcohol withdrawal. 2. Alcohol use disorder, severe. 3. Social stressors regarding alcohol use disorder. 4. Rule out alcohol-induced mood disorder. PLAN 1. Admit to the unit. 2. Necessary precautions to be implemented. 3. Patient will participate in individual and group therapy. 4. Medications will be adjusted and titrated accordingly. Will continue to treat alcohol withdrawal to completion with Ativan and NWI protocol. 5. Collateral information to be obtained as necessary. 6. Estimated length of stay two to three days. MTDD
[2018-04-04 06:29] VITALS: BP 114/78
[2018-04-04 08:24] VITALS: BP 102/76
[2018-04-04] MEDS: ESCITALOPRAM OXALATE 10 MG TAB PO SCH (08:39)
[2018-04-04] MEDS: THIAMINE HCL 100 MG TAB PO SCH (08:39)
[2018-04-04] MEDS: MULTIVITAMINS TAB PO SCH (08:39)
[2018-04-04] MEDS: FOLIC ACID 1 MG TAB PO SCH (08:39)
[2018-04-04] MEDS: LORazepam 1 MG TAB PO PRN ×3 (08:40→21:49)
[2018-04-04] MEDS: NICOTINE POLACRILEX 2 MG GUM PO PRN ×2 (08:57→12:46)
--- NOTE | 2018-04-04 09:53 | BHS Progress Note ---
[facility] - Subjective Progress Notes Subjective Patient very cooperative on the unit, alcohol withdrawal nearing completion, no suicidal ideation, mood good, interacting well with family members present during treatment team meeting. Patient will consider signing in voluntarily in order to enter rehab program, verses discharging to outpatient care today. No other concerns. Suicidal Ideation: None Homicidal Ideation: None [facility] - Objective Physical Exam Vital Signs Vital Signs Date Time Temp Pulse Resp B/P (MAP) Pulse Ox O2 Delivery O2 Flow Rate FiO2 04/04/18 06:29 98.3 88 114/78 (90) 94 Room Air 04/03/18 08:05 18 Muscle Strength and Tone: WNL Gait and Station: Steady [facility] Medications Reviewed: Side Effects, Benefits of Medication, Risks Allergies Reviewed: Yes Mental Status Exam General Appearance: Casual, Well Groomed, Good Eye Contact, Cooperative, Polite , Good Interaction, No Unkept, No Tearful, No Psychomotor Agitation, No Psychomotor Retardation, No Bizarre Mannerisms, No Tics Speech: Clear, Spontaneous, Normal Rate, Normal Rhythm, Normal Volume, Normal Tone Mood: Euthymic Affect: Full and Appropriate, Calm, No Sad, No Neutral, No Flat, No Withdrawn, No Tearful, No Anxious, No Agitated Thought Process: Organized, Logical, Goal Directed, No Loose Associations, No Flight of Ideas Thought Content: No Suicidal Ideation, No Homicidal Ideation, No Delusions, No Auditory Halllucinations, No Visual Hallucinations, No Thought Broadcasting, No Ideas of Reference, No Obsessions, No Compulsions Sensorium: Clear Cognition: Alert & Oriented-Person, Alert & Oriented-Place, Alert & Oriented- Time, Whasi-Nkvilatw-Zeszpcvta Memory: Immediate, Recent, Remote Intelligence: Average Insight Judgment: Fair (in absence of alcohol use. ) [facility] Assessment and Plan Udfy-jw-[id number] Encounter Date: Apr 04, 2018 Dnkt-[id number] Encounter Time: 09:10 [facility] Plan: Necessary Precautions, Individual/Group Therapy, Admin/Titrate Meds, Educate Patient Tobacco Medications: Started Multpiple Antipsychotics Used: No Problems: (1) Alcohol use disorder, severe, dependence Status: Chronic (2) Alcohol withdrawal Status: Acute Condition 1. evaluate treatment options 2. continue treatment. 3. emergency detainment ends today. Problem Qualifiers (1) Alcohol withdrawal: Complication of substance-induced condition: with unspecified complication Qualified Codes: F10.239 - Alcohol dependence with withdrawal, unspecified LISA CALHOUN MD Apr 04, 2018 09:53
[2018-04-04 13:15] VITALS: BP 104/60
[2018-04-04] MEDS: NICOTINE INH SYSTEM 10 MG/INH INH PRN ×4 (15:39→21:48)
[2018-04-04 16:59] VITALS: BP 124/96
[2018-04-04 17:34] VITALS: BP 127/90
[2018-04-05 06:08] VITALS: BP 107/71
[2018-04-05 08:35] VITALS: BP 98/68
[2018-04-05] MEDS: ESCITALOPRAM OXALATE 10 MG TAB PO SCH (08:41)
[2018-04-05] MEDS: FOLIC ACID 1 MG TAB PO SCH (08:41)
[2018-04-05] MEDS: THIAMINE HCL 100 MG TAB PO SCH (08:41)
[2018-04-05] MEDS: MULTIVITAMINS TAB PO SCH (08:41)
[2018-04-05] MEDS: NICOTINE INH SYSTEM 10 MG/INH INH PRN (08:43)
--- NOTE | 2018-04-05 09:23 | BHS Progress Note ---
[facility] - Subjective Progress Notes Subjective "I'm a little anxious to get home." Denies urge to drink Treatment team meeting w/mother and patient to discuss residential treatment programs Anxiety 01/09, denies anger Denies depression//SI Suicidal Ideation: None Homicidal Ideation: None [facility] - Objective Physical Exam Vital Signs Vital Signs Date Time Temp Pulse Resp B/P (MAP) Pulse Ox O2 Delivery O2 Flow Rate FiO2 04/05/18 08:35 98.7 104 16 98/68 (78) 93 Room Air Muscle Strength and Tone: WNL Gait and Station: Steady [facility] Medications Reviewed: Side Effects, Benefits of Medication, Risks Allergies Reviewed: Yes Mental Status Exam General Appearance: Casual, Well Groomed, Good Eye Contact, Cooperative, Polite , Good Interaction, No Unkept, No Tearful, No Psychomotor Agitation, No Psychomotor Retardation, No Bizarre Mannerisms, No Tics Speech: Clear, Spontaneous, Normal Rate, Normal Rhythm, Normal Volume, Normal Tone Mood: Euthymic Affect: Full and Appropriate, Calm, No Sad, No Neutral, No Flat, No Withdrawn, No Tearful, No Anxious, No Agitated Thought Process: Organized, Logical, Goal Directed, No Loose Associations, No Flight of Ideas Thought Content: No Suicidal Ideation, No Homicidal Ideation, No Delusions, No Auditory Halllucinations, No Visual Hallucinations, No Thought Broadcasting, No Ideas of Reference, No Obsessions, No Compulsions Sensorium: Clear Cognition: Alert & Oriented-Person, Alert & Oriented-Place, Alert & Oriented- Time, Wrmcd-Lskfuoxn-Ziwxqnhry Memory: Immediate, Recent, Remote Intelligence: Average Insight Judgment: Fair (in absence of alcohol use. ) Lab ED Medications Nicotine Polacrilex (Nicorette 2 Mg Gum (Or Equiv)) 2 mg Q1-2H PRN Last administered on 04/04/18at 12:46; Admin Dose 2 MG; Start 04/03/18 at 13:10; Stop at 15:01; Status DC Nicotine (Nicotrol Inhaler 10 Mg/Inh (Or Equiv)) 10 mg PRN PRN Last administered on 04/05/18at 08:43; Admin Dose 10 MG; Start 04/04/18 at 15:05; Stop 04/05/18 at 11:52; Status DC [facility] Assessment and Plan Kbok-qo-Whve Encounter Date: Apr 05, 2018 Mthr-[id number] Encounter Time: 09:22 [facility] Plan: Necessary Precautions, Individual/Group Therapy, Admin/Titrate Meds, Educate Patient Tobacco Medications: Started Multpiple Antipsychotics Used: No Problems: (1) Alcohol use disorder, severe, dependence Status: Chronic (2) Alcohol withdrawal Status: Resolved Condition Discharge to home Treatment team w/mother and patient prior to dc Encourage to abstain from etoh/illicit substances Encourage outpatient therapy, medication management Encourage residential tx program for alcohol use disorder with options reviewed w/patient and family Crisis line # provided and encourage Return to ER for worsening symptoms, SI/HI Problem Qualifiers (1) Alcohol withdrawal: Complication of substance-induced condition: with unspecified complication Qualified Codes: F10.239 - Alcohol dependence with withdrawal, unspecified CECE ALEMAN NP Apr 05, 2018 09:23
[2018-04-05] MEDS ORDERED: ESCI20TA38 PO (09:40)
[2018-04-05] MEDS ORDERED: NIC10R INH (09:49)
--- NOTE | 2018-04-05 14:31 | DISCHARGE SUMMARY ---
DATE OF ADMISSION: April 01, 2018 DATE OF DISCHARGE: April 05, 2018 FINAL DIAGNOSES PER DIAGNOSTIC AND STATISTICAL MANUAL OF MENTAL DISORDERS, FIFTH EDITION 1. Alcohol use disorder, severe. 2. Alcohol withdrawal, considered complete. REASON FOR ADMISSION/BRIEF HISTORY This patient is a 33-year-old, single, female who was initially brought in to the Emergency Room intoxicated after she had reported a heavy alcohol binge over the last couple of weeks including ingestion of ingesting isopropyl alcohol. She was brought in by her family. Her blood alcohol initially was 72. Acetaminophen level was 34. She works on her parents' [place] , and parents had been trying to remove alcohol from the home and anywhere that she could have access to it. Patient was found to have drunk isopropyl alcohol, uncertain amount. She reported that was previously in counseling due to relationship stressors, but stopped in September due to the high cost. Patient was initially admitted to the Intensive Care Unit for close monitoring and then transferred to the Behavioral Health Unit for further evaluation and treatment when medically stable. Upon initial psychiatric interview, patient was found to have ingested Tylenol in addition to drinking the isopropyl alcohol and drinking alcohol. She was intoxicated and stabilized, and then once medically cleared, was admitted to the Behavioral Health Unit. Patient denied suicidality , reported that she had just "wanted to get high," and was open and freely admitting that she was an alcoholic. Patient reporting some financial and family-related stressors. She had been seeing [facility] for medical management on an outpatient basis and had previously been engaged with some individual counseling at the [facility], although had ceased individual therapy due to high cost. Patient had never been an inpatient on a psychiatric unit before. She had reported some extended periods of sobriety, had previously gone to . Denied any history of suicide attempt. PHYSICAL EXAMINATION Please see emergency room notes for physical exam. VITAL SIGNS: Vital signs at time of admission including temperature of 98.3, pulse of 100, blood pressure 102/76, pulse oximetry 93% on room air. Vital signs at time of discharge include temperature of 98.7, pulse of 104, respiratory rate 16, blood pressure 98/68, pulse oximetry 93% on room air. LABORATORY DATA CBC, initial white blood count 13.0, hemoglobin high, 16.2, MCV elevated, 96.2, MCH elevated, 34.1. Chemistry panel with sodium initially low at 136, chloride elevated at 108, carbon dioxide low at 21, creatinine low, 0.5, calcium low, 7.5 , AST 18, ALT 25, total protein low at 5.3, albumin low, 3.0. Thyroid stimulating hormone 0.22, low. Urine screen within normal limits with the exception of many squamous epithelial cells. Toxicology including salicylate and acetaminophen levels upon repeat less than 10. Serum alcohol level 72. Urine screen negative for opiates, barbiturates, tricyclics, phencyclidine, amphetamines, benzodiazepines, cocaine, and cannabinoids. MENTAL STATUS EXAMINATION GENERAL APPEARANCE, BEHAVIOR, AND ATTITUDE: Patient is calm, cooperative, making good eye contact at time discharge interview. No periods of tearfulness. No bizarre mannerisms or tics. Alcohol withdrawal considered complete. No psychomotor agitation. SPEECH: Clear, spontaneous. Regular rate, rhythm, volume, and tone. MOOD: Euthymic. AFFECT: Minimally constricted, mood congruent. THOUGHT PROCESSES: Organized, logical. No loose associations or flight of ideas. THOUGHT CONTENT: Patient denying suicidal or homicidal ideations. Denies auditory or visual hallucinations. Denies thought broadcasting. No ideas of reference, obsessions, compulsions. SENSORIUM: Clear. COGNITION: Alert and oriented to person, place, time, and situation. MEMORY: Immediate, recent, and remote intact. INTELLIGENCE: Average. INSIGHT AND JUDGMENT: Considered fair in the absence of alcohol. RESULTS OF TESTING Please see laboratory data and intensive care monitoring. CONSULTATIONS None. TREATMENT Patient participated in individual and group therapy. She remained calm and cooperative throughout her hospital stay. Her alcohol withdrawal was considered complete. CONDITION OF PATIENT ON DISCHARGE Stable. She is considered a minimal risk to herself or others. DISPOSITION Patient is discharged to home. A treatment team meeting was completed with patient and her mother to review in length residual substance abuse programs. Patient will discharge to home in the care of her mother. She was encouraged to abstain from alcohol and all illicit substances. She is to take medication only as prescribed. She is to follow up with medical management through Lesa Stahl APRN, and Krista Martinez for individual therapy at the [facility]. She is looking towards a residential treatment program pending acceptance and insurance availability. The crisis line number is given and encouraged use for worsening symptoms. AA, individual therapy, and/or residential treatment program is encouraged. Patient is to return to the Emergency Room for worsening symptoms, suicidal or homicidal ideation. Patient is calm and cooperative and verbalizes understanding of the above discharge plan and agrees with discharge plan as stated. DISCHARGE MEDICATIONS 1. Lexapro 20 mg one p.o. daily. 2. Nicotrol cartridge inhaler as needed for nicotine replacement. MTDD
== END 2018-04-05 11:52 | disposition home or self-care (01) | DRG 897 ==
LOC: BHS 17:20
PROVIDERS: ADMIT Psychiatry & Neurology Psychiatry; ATTEND Psychiatry & Neurology Psychiatry
DX: F10.230 Alcohol dependence with withdrawal, uncomplicated (principal); T51.2X2A Toxic effect of 2-Propanol, intentional self-harm, initial encounter; T39.1X2A Poisoning by 4-Aminophenol derivatives, intentional self-harm, initial encounter; F41.9 Anxiety disorder, unspecified; F17.210 Nicotine dependence, cigarettes, uncomplicated; Y90.3 Blood alcohol level of 60-79 mg/100 ml; Z63.8 Other specified problems related to primary support group; Z59.9 Problem related to housing and economic circumstances, unspecified; Z81.1 Family history of alcohol abuse and dependence; Z88.5 Allergy status to narcotic agent